=== PATIENT | female | born 1945 | race Caucasian/White ===

== ENCOUNTER 2016-05-31 16:22 | Inpatient (IN) | payer OTHER ==
--- NOTE | ~2016-05-31 | DS ---
Discharge Summary [facility] [address] [place]. [address] NAME: SANTOSH JEFFERSON : 43 STATUS : DIS IN PAT#: [id number] AGE: 70 ADM/REG DATE : 05/31/16 MR#: [id number] REPORT SERV DATE: 06/04/16 DICTATED BY: LESLEE CRUZ DATE: 06/03/16 REPORT STATUS : Draft TRANSCRIBED BY: MODTereso DATE: 06/03/16 ADMISSION DATE: 05/31/2016 DISCHARGE DATE: 06/03/2016 DISCHARGE DIAGNOSES: 1. Cholangitis. 2. 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 3. Diabetes mellitus type 2. 4. Hypokalemia. 5. Abdominal pain/tenderness resolved. CONSULTATION: GI, ORIANA Redman, 06/01/2016. COURSE IN THE HOSPITAL STAY: Please refer to history and physical dictated on 05/31/2016, as well as consultation note for complete details of admission and consult for complete details. This patient is a 70-year-old female, who presented with a history of unresectable cholangiocarcinoma due to peritoneal metastasis as well as pancreatitis. The patient was seen by Dr. Loredo on 05/29/2016 for stent removal. The patient presented to [facility] Emergency Room with complaints of increased abdominal pain, as well as cholangitis. The patient was evaluated by Pardeep Garner, for possible ERCP. The patient did undergo a biliary drain exchange on 06/02/2016, with drain remaining in place. The patient did tolerate procedure well. She is being discharged home with [facility] to resume dressing care per home health and education will be provided. The patient does deny pain at this time. Laboratory data has been monitored throughout her stay. The patient was noted with hypokalemia, but this was replaced per protocol. The patient will be discharged home to follow up with Oncology this week for followup imaging. She will continue antibiotics. DISCHARGE MEDICATIONS: 1. Aspirin 81 mg one p.o. daily. 2. Coreg 3.125 mg twice daily. 3. Neurontin 300 mg 3 times daily. 4. NovoLog FlexPen sliding scale. 5. Lisinopril 10 mg one p.o. every morning. 6. Remeron 50 mg one p.o. at bedtime. 7. Levaquin 750 mg one p.o. daily. 8. Flagyl 500 mg one p.o. every eight hours. 9. Vitamin B12 1000 mcg sublingual every day. 10.Folic acid 400 mg one p.o. daily. 11.Multivitamin p.o. daily. 12.Pravachol 20 mg one p.o. at bedtime. 13.Ferrous sulfate 325 mg one p.o. every morning. 14.Amaryl 1 mg p.o. daily. Discharge Summary [address] [address] NAME: SANTOSH JEFFERSON : 43 STATUS : DIS IN PAT#: [id number] AGE: 70 ADM/REG DATE : 05/31/16 MR#: [id number] REPORT SERV DATE: 06/04/16 DICTATED BY: LESLEE CRUZ DATE: 06/03/16 REPORT STATUS : Draft TRANSCRIBED BY: CÉSAR DATE: 06/03/16 15.Vitamin D3 1000 units daily. 16.Zofran 8 mg one p.o. every eight hours p.r.n. for nausea. 17.Compazine 10 mg one p.o. every 6 hours p.r.n. for nausea. 18.Tramadol 50 mg one p.o. every eight hours p.r.n. for pain. This discharge took less than 30 minutes. [facility]/CÉSAR Leslee Cruz NP / [id number] CC: Jerrod Vincent MD
--- NOTE | ~2016-05-31 | HP ---
History And Physical [address] [place]. [address] NAME: SANTOSH JEFFERSON : 43 STATUS : ADM Amber PAT#: [id number] AGE: 70 ADM/REG DATE : 05/31/16 MR#: [id number] REPORT SERV DATE: 05/31/16 DICTATED BY: BRAYAN BRUMFIELD DATE: 05/31/16 REPORT STATUS : Draft TRANSCRIBED BY: MODL DATE: 05/31/16 DATE OF ADMISSION: 05/31/2016 CHIEF COMPLAINT: Abdominal pain and discomfort with nausea, vomiting. HISTORY OF PRESENT ILLNESS: The patient is a 70-year-old very pleasant female with past medical history of recent diagnosis of cholangiocarcinoma with peritoneal metastases, likely acute cholangitis at this time, diabetes type 2 non-insulin dependent, hypertension, who since recent removal of stent and drain by Dr. Loredo, has had multiple episodes of nausea, vomiting, abdominal pain, and decreased p.o. intake. Symptoms have been in moderate severity, continuous and constant quality of cramping with no radiating symptoms, but associated with the site of drain on right quadrant. The patient still has postsurgical midline site pain also, but with no drainage or erythema. The patient has been slightly more weak with nausea, vomiting of clear liquids, no bilious contents. No fever, chills, or shortness of breath or headaches. She was evaluated at her oncologist in [place] and recommended to have further evaluation immediately in the emergency room after discussion with Dr. Loredo. ED has discussed the case with Dr. Loredo and tentative plan for ERCP after admission with empiric antibiotics. Symptoms are worsened with palpation, but able to tolerate food. No relieving symptoms. The patient has also been noticed to have more jaundice, per family members, a son, who is at bedside and reports that symptoms are still currently present with jaundice worsening into her eyes. The patient denies any itching type symptoms. REVIEW OF SYSTEMS: Additional 10-point review of systems negative for that noted in the HPI. PAST MEDICAL HISTORY: Hypertension; diabetes type 2; cholangiocarcinoma with peritoneal metastases, seen by Dr. Zepeda and Dr. Loredo. Additionally, pancreatitis, complicated by prior ERCP per records, common bile duct stricture. SURGICAL HISTORY: Exploratory laparotomy with wedge resection of liver lesion on T1 in 2017, hysterectomy, ERCP. FAMILY HISTORY: Diabetes and CVA. SOCIAL HISTORY: , accompanied by son who the patient lives with. No smoking, alcohol, or illicits and retired. Previously worked at [employer], but no chemical exposures. ALLERGIES: NO KNOWN DRUG ALLERGIES. HOME MEDICATIONS: Aspirin, Coreg, vitamin D3, B12, ferrous sulfate, folic acid, gabapentin, Amaryl, NovoLog, FlexPen 3 units before meals, Zestril, Remeron, multivitamin, Zofran, pravastatin, Compazine. PHYSICAL EXAMINATION: History And Physical [address] [address] NAME: SANTOSH JEFFERSON : 43 STATUS : ADM Amber PAT#: [id number] AGE: 70 ADM/REG DATE : 05/31/16 MR#: [id number] REPORT SERV DATE: 05/31/16 DICTATED BY: BRAYAN BRUMFIELD DATE: 05/31/16 REPORT STATUS : Draft TRANSCRIBED BY: CÉSAR DATE: 05/31/16 GENERAL: The patient's blood pressure is 131/60, temperature 99, pulse 77, respirations 16, O2 sats 98%. GENERAL: No acute distress. Calm, pleasant. EYES: Scleral icterus. EOMI. ENT: Nares patent. Tongue midline. Moist mucous membranes. RESPIRATORY: Respirations clear to auscultation. No wheezes or rales. Mild polyphonic breath sounds in lower lung cochran and anterior breath sounds, but otherwise, clear. No stridor. CV: Regular rate. No rubs or gallops. No pedal edema. GI: Mild right side quadrant tenderness and site tenderness at mid epigastric with palpation, but no rebound. No fluid wave. No gross hepatomegaly. : Deferred. MUSCULOSKELETAL: Moves all extremities x4. SKIN: Warm and dry. Mild jaundice, but no excoriation signs. LYMPHS: No cervical or supraclavicular lymphadenopathy. HEME: No bleeding or bruising. NEURO: Alert and oriented. No asterixis. Moves all extremities x4 with strength symmetrical in upper and lower extremities. Sensation is grossly intact. PSYCH: Appropriate mood and affect. Pleasant, calm, smiling, and joking manner. LABS: CMP: Sodium 136, potassium 3.2, chloride 97 with a bicarb of 29, BUN and creatinine 30 and 1.2, glucose 170. T protein 7.4, alkaline phosphatase 338, T bilirubin 4.9 increased from 0.5 on 05/04/2016, AST and ALT 113 and 244, lipase of 136, total protein 7.4. Calcium 9.7. CBC, grossly within normal limits. ASSESSMENT AND PLAN: 1. Cholangitis. 2. Hypokalemia. 3. Azotemia. 4. Diabetes type 2. 5. Elevated liver enzymes. 6. Hypertension. 7. Reported cholangiocarcinoma with peritoneal metastases. Plan for cholangitis. ERCP, tentatively planned by Dr. Loredo for further evaluation. Empiric antibiotics with Levaquin and Flagyl. The patient has not started taking home antibiotics that was called in today as the patient was told to come to emergency room. 8. Hypokalemia. IV replacement and monitoring. 9. Azotemia. IV fluids. The patient has had decreased p.o. intake secondary to nausea and vomiting. 10.Diabetes type 2. Sliding scale insulin. N.p.o. at midnight for possible ERCP. 11.Elevated liver enzymes. ERCP monitoring. Hold statin. 12.Hypertension. Monitor on ADIA inhibitor and beta bert. 13.Cholangiocarcinoma with peritoneal metastases, has been evaluated by Dr. Zepeda and currently under the care of Dr. Maverick Toro. All questions answered with the patient family at bedside. History And Physical [address] [address] NAME: SANTOSH JEFFERSON : 43 STATUS : ADM Amber PAT#: [id number] AGE: 70 ADM/REG DATE : 05/31/16 MR#: [id number] REPORT SERV DATE: 05/31/16 DICTATED BY: BRAYAN BRUMFIELD DATE: 05/31/16 REPORT STATUS : Draft TRANSCRIBED BY: MODL DATE: 05/31/16 DISPOSITION: Pending evaluation by GI team. DDN/ANGIEL Brayan Brumfield MD / [id number] CC: Guanako Gregory Jr, PAULY CONWAY
--- NOTE | ~2016-05-31 | CN ---
Consultation Report [facility] [address] [place]. [address] NAME: SANTOSH JEFFERSON : 43 STATUS : ADM Amber PAT#: [id number] AGE: 70 ADM/REG DATE : 05/31/16 MR#: [id number] REPORT SERV DATE: 06/01/16 DICTATED BY: REX DIOP DATE: 06/01/16 REPORT STATUS : Draft TRANSCRIBED BY: MODL DATE: 06/01/16 GI CONSULTATION DATE OF CONSULTATION: 06/01/2016 REASON FOR CONSULTATION: Evaluation and management of abdominal pain, concern for cholangitis in a patient with cholangiocarcinoma. HISTORY OF PRESENT ILLNESS: Ms Santosh Toure is a pleasant 70-year-old female patient, who has a history of unresectable cholangiocarcinoma due to peritoneal metastasis as well as pancreatitis, who was seen by Dr. Loredo on 05/29/2016 for stent removal. She has a history of a PTC tube as well as had a biliary stent. He removed only the biliary stent on the 05/29/2016 leaving behind the PTC tube; however, the patient's son states that after she got home on Sunday night, she seems to eat well, but later in the night she had abdominal discomfort, she ran a fever of 101.2. This continued throughout the next day and into Sunday. She was seen in [place] by her oncologist as she was getting ready to get markings for receiving radiation treatment secondary to her increasing jaundice and abdominal discomfort. Dr. Loredo was contacted. He advised them to bring her to [facility] for concerns of cholangitis, place her on antibiotics. I have discussed with Dr. Loredo as well as Dr. Purvis. We will take the patient today for ERCP with an uncovered metal stent placement, and evaluation of the PTC tube. I discussed this with the patient as well as the patient's son, who is at the bedside. I did discuss risks, benefits, alternatives, and complications with him to include, but not limited to risk of bleeding, perforation, infection, reaction to medications, as well as cardiac pulmonary side effects, and ERCP- induced pancreatitis. They are agreeable to proceed. PAST MEDICAL HISTORY: Positive for hypertension, type 2 diabetes, unresectable cholangiocarcinoma with peritoneal metastasis, and pancreatitis. PAST SURGICAL HISTORY: Exploratory laparotomy with wedge resection of the liver, hysterectomy, and ERCP. FAMILY HISTORY: Noncontributory from a GI standpoint. SOCIAL HISTORY: She is and presently she has been living with her son. Denies alcohol, tobacco, or illicits. ALLERGIES: NONE. HOME MEDICATIONS: Aspirin, Coreg, vitamin D3, B12, ferrous sulfate, folic acid, gabapentin, Amaryl, NovoLog, FlexPen 3 units before meals, Zestril, Remeron, multivitamin, Zofran, pravastatin, and Compazine. REVIEW OF SYSTEMS: Consultation Report [address] [place]. [address] NAME: SANTOSH JEFFERSON : 43 STATUS : ADM Amber PAT#: [id number] AGE: 70 ADM/REG DATE : 05/31/16 MR#: [id number] REPORT SERV DATE: 06/01/16 DICTATED BY: REX DIOP DATE: 06/01/16 REPORT STATUS : Draft TRANSCRIBED BY: CÉSAR DATE: 06/01/16 A 10-point review of systems was obtained, pertinent positives are addressed in the history of present illness. PHYSICAL EXAMINATION: VITAL SIGNS: Temperature 98.2, pulse 71, respiration 16, and blood pressure 166/77. NEUROLOGIC: Reveals an alert female, resting in bed with no focal deficits being noted. GENERAL: She is cooperative. She is in no obvious distress. She is awake, she is alert, and she is oriented x3. HEAD, EARS, EYES, NOSE, AND THROAT: She has notable mild scleral icterus. Pupils are equal, round, and reactive to light and accommodation. Normocephalic and atraumatic. SKIN: Warm, dry, and intact, but with mild jaundice noted. NECK: No JVD. No palpable nodes. LUNGS: Diminished throughout. Normal respiratory effort exhibited. Equal expansion. CARDIOVASCULAR: Regular rate and rhythm. ABDOMEN: Soft with mild tenderness to palpation to midline, at the old surgical site she has a right PTC tube covered with a drain. Hypoactive bowel sounds. EXTREMITIES: No edema. Normal distal pulses. PERTINENT LABORATORY DATA: Sodium 141, potassium 4.1, BUN is 24, and creatinine 0.73. White count 4.9, hemoglobin 11.3, and hematocrit is 34.3. Total bilirubin 3.4, it was 4.9 on admission. Alkaline phosphatase 338. ALT 244 and AST 113. ASSESSMENT: 1. Questionable cholangitis with jaundice. 2. Unresectable cholangiocarcinoma with peritoneal metastasis. 3. Type 2 diabetes. 4. Elevated LFTs. PLAN: 1. ERCP today to Dr. Purvis with metal stent placement. 2. We will hold her heparin. 3. Continue IV antibiotic coverage. We will follow. SRIRAM/CÉSAR ORIANA Redman / [id number] CC: Jerrod Vincent MD Consultation Report [address] [facility] [address] NAME: SANTOSH JEFFERSON : 43 STATUS : ADM Amber PAT#: [id number] AGE: 70 ADM/REG DATE : 05/31/16 MR#: [id number] REPORT SERV DATE: 06/01/16 DICTATED BY: REX DIOP DATE: 06/01/16 REPORT STATUS : Draft TRANSCRIBED BY: CÉSAR DATE: 06/01/16 PAULY LAWLER
[2016-05-31 14:19] LABS: BASOPHILS 0.3 %; BASOPHILS ABSOLUTE 0.02 10/3/uL (0.0-0.16); EOSINOPHILS 2.6 %; IMMATURE GRANULOCYTES 0.3 %; IMMATURE GRANULOCYTES ABSOLUTE 0.02 10/3/uL (0.0-0.11); LYMPHOCYTES 18.5 %; LYMPHOCYTES ABSOLUTE 1.44 10/3/uL (0.67-4.30); MEAN CORPUS HGB CONC 34.2 g/dL (32.0-36.0); MEAN CORPUSCULAR HEMOGLOB 30.7 pg (26.0-34.0); MEAN CORPUSCULAR VOLUME 89.6 fL (80-100); MEAN PLATELET VOLUME 10.2 fL (9.2-13.0); MONOCYTES 8.5 %; MONOCYTES ABSOLUTE 0.66 10/3/uL (0.21-1.20); NEUTROPHILS 69.8 %; NEUTROPHILS ABSOLUTE 5.43 10/3/uL (2.02-8.40); RBC DISTRIBUTION WIDTH 12.9 % (12.0-16.0); RED CELL COUNT 4.24 10/6/uL (4.0-5.6); WHITE BLOOD CELLS 7.8 10/3/uL (4.5-10.5)
[2016-05-31 14:20] LABS: MANUAL DIFF NO %; PLATELET COUNT 212 10/3/uL (150-400)
[2016-05-31 14:33] LABS: ALBUMIN 3.1 G/DL (3.5-5.0); CHLORIDE, SERUM 97 MMOL/L (96-112); CO2 (CARBON DIOXIDE) 29 MMOL/L (24-34); CREATININE 1.02 MG/DL (0.55-1.02); GFR AFRICAN AMERICAN 64 ML/MIN (>=60); GFR NON AFRICAN AMERICAN 55 ML/MIN (>=60); GLUCOSE, SERUM 170 MG/DL (60-99); SGOT(AST) 113 U/L (5-40); SGPT(ALT) 244 U/L (5-65); SODIUM, SERUM 136 MMOL/L (135-148)
[2016-05-31 14:37] LABS: A/G RATIO 0.7 (0.7-1.9); ALKALINE PHOSPHATASE 338 U/L (45-117); BUN (BLOOD UREA NITROGEN) 30 MG/DL (6-23); CALCIUM, SERUM 9.7 MG/DL (8.5-10.4); GLOBULIN 4.3 G/DL (2.5-4.1); POTASSIUM, SERUM 3.2 MMOL/L (3.5-5.3); TOTAL BILIRUBIN 4.9 MG/DL (0-1.2); TOTAL PROTEIN 7.4 G/DL (6.0-8.5)
[~2016-05-31 16:22] MED LIST: AMARYL1 MG PO; ASAB PO; COREG3 PO; COREG6 PO; FERROUS SULF325 M1 PO; FOLIC ACID400 MC1 PO; GLUCPH PO; IRON TAB PO; LEVEMFLXPN SC; MULTIPLE VIT PO; NEUR300 PO; NOVOPEN SC; PCET PO; PRAVAC PO; REM15 PO; VITAMIN B-121000 MC1 SL; VITAMIN D31000 UNIT PO; ZESTRIL10 MG PO; ZOFRANODT8 PO
[2016-05-31] MEDS ORDERED: COMP10B PO (16:34)
[2016-06-01 06:05] LABS: BASOPHILS 0.6 %; BASOPHILS ABSOLUTE 0.03 10/3/uL (0.0-0.16); EOSINOPHILS 8.8 %; EOSINOPHILS ABSOLUTE 0.43 10/3/uL (0.0-0.53); HEMATOCRIT 34.3 % (36.0-48.0); HEMOGLOBIN 11.3 g/dL (12.0-16.0); LYMPHOCYTES 21.3 %; LYMPHOCYTES ABSOLUTE 1.04 10/3/uL (0.67-4.30); MEAN CORPUS HGB CONC 32.9 g/dL (32.0-36.0); MEAN CORPUSCULAR HEMOGLOB 29.4 pg (26.0-34.0); MEAN CORPUSCULAR VOLUME 89.1 fL (80-100); MEAN PLATELET VOLUME 10.4 fL (9.2-13.0); MONOCYTES 10.5 %; MONOCYTES ABSOLUTE 0.51 10/3/uL (0.21-1.20); NEUTROPHILS 58.8 %; NEUTROPHILS ABSOLUTE 2.87 10/3/uL (2.02-8.40); PLATELET COUNT 193 10/3/uL (150-400); RBC DISTRIBUTION WIDTH 13.2 % (12.0-16.0); RED CELL COUNT 3.85 10/6/uL (4.0-5.6); WHITE BLOOD CELLS 4.9 10/3/uL (4.5-10.5)
[2016-06-01 06:15] LABS: MANUAL DIFF NO %
[2016-06-01 06:16] LABS: CHLORIDE, SERUM 105 MMOL/L (96-112); CO2 (CARBON DIOXIDE) 27 MMOL/L (24-34); CREATININE 0.73 MG/DL (0.55-1.02); GFR AFRICAN AMERICAN 96 ML/MIN (>=60); GFR NON AFRICAN AMERICAN 83 ML/MIN (>=60); SGOT(AST) 74 U/L (5-40); SGPT(ALT) 165 U/L (5-65); SODIUM, SERUM 141 MMOL/L (135-148); TOTAL PROTEIN 6.2 G/DL (6.0-8.5)
[2016-06-01 06:17] LABS: A/G RATIO 0.6 (0.7-1.9); ALBUMIN 2.4 G/DL (3.5-5.0); ALKALINE PHOSPHATASE 291 U/L (45-117); BUN (BLOOD UREA NITROGEN) 24 MG/DL (6-23); CALCIUM, SERUM 8.7 MG/DL (8.5-10.4); GLOBULIN 3.8 G/DL (2.5-4.1); GLUCOSE, SERUM 115 MG/DL (60-99); POTASSIUM, SERUM 4.6 MMOL/L (3.5-5.3); TOTAL BILIRUBIN 3.4 MG/DL (0-1.2)
[2016-06-02 05:05] LABS: BASOPHILS 0.4 %; BASOPHILS ABSOLUTE 0.02 10/3/uL (0.0-0.16); EOSINOPHILS 3.3 %; EOSINOPHILS ABSOLUTE 0.16 10/3/uL (0.0-0.53); HEMATOCRIT 35.9 % (36.0-48.0); HEMOGLOBIN 12.2 g/dL (12.0-16.0); LYMPHOCYTES 25.8 %; LYMPHOCYTES ABSOLUTE 1.27 10/3/uL (0.67-4.30); MEAN CORPUSCULAR VOLUME 91.3 fL (80-100); MEAN PLATELET VOLUME 10.2 fL (9.2-13.0); MONOCYTES 8.1 %; NEUTROPHILS 62.4 %; NEUTROPHILS ABSOLUTE 3.07 10/3/uL (2.02-8.40); PLATELET COUNT 195 10/3/uL (150-400); RED CELL COUNT 3.93 10/6/uL (4.0-5.6); WHITE BLOOD CELLS 4.9 10/3/uL (4.5-10.5)
[2016-06-02 05:06] LABS: MANUAL DIFF NO %
[2016-06-02 05:12] LABS: ALBUMIN 2.6 G/DL (3.5-5.0); CALCIUM, SERUM 8.8 MG/DL (8.5-10.4); CHLORIDE, SERUM 106 MMOL/L (96-112); CO2 (CARBON DIOXIDE) 24 MMOL/L (24-34); CREATININE 0.67 MG/DL (0.55-1.02); GFR AFRICAN AMERICAN 102 ML/MIN (>=60); GFR NON AFRICAN AMERICAN 88 ML/MIN (>=60); GLUCOSE, SERUM 101 MG/DL (60-99); POTASSIUM, SERUM 3.5 MMOL/L (3.5-5.3); SGOT(AST) 44 U/L (5-40); SGPT(ALT) 128 U/L (5-65); SODIUM, SERUM 142 MMOL/L (135-148); TOTAL PROTEIN 6.6 G/DL (6.0-8.5)
[2016-06-02 05:13] LABS: ALKALINE PHOSPHATASE 330 U/L (45-117); BUN (BLOOD UREA NITROGEN) 14 MG/DL (6-23); DIRECT BILIRUBIN 1.1 MG/DL (0.0-0.4); INDIRECT BILIRUBIN(NOT ORDER) 0.6 MG/DL (0.1-0.9); TOTAL BILIRUBIN 1.7 MG/DL (0-1.2)
[2016-06-03 05:08] LABS: BASOPHILS 0.4 %; BASOPHILS ABSOLUTE 0.03 10/3/uL (0.0-0.16); EOSINOPHILS 1.1 %; EOSINOPHILS ABSOLUTE 0.09 10/3/uL (0.0-0.53); HEMATOCRIT 36.8 % (36.0-48.0); HEMOGLOBIN 12.4 g/dL (12.0-16.0); IMMATURE GRANULOCYTES 0.1 %; IMMATURE GRANULOCYTES ABSOLUTE 0.01 10/3/uL (0.0-0.11); LYMPHOCYTES 13.6 %; LYMPHOCYTES ABSOLUTE 1.09 10/3/uL (0.67-4.30); MANUAL DIFF NO %; MEAN CORPUS HGB CONC 33.7 g/dL (32.0-36.0); MEAN CORPUSCULAR HEMOGLOB 30.6 pg (26.0-34.0); MEAN CORPUSCULAR VOLUME 90.9 fL (80-100); MEAN PLATELET VOLUME 9.9 fL (9.2-13.0); MONOCYTES 4.5 %; MONOCYTES ABSOLUTE 0.36 10/3/uL (0.21-1.20); NEUTROPHILS 80.3 %; NEUTROPHILS ABSOLUTE 6.45 10/3/uL (2.02-8.40); PLATELET COUNT 226 10/3/uL (150-400); RBC DISTRIBUTION WIDTH 12.9 % (12.0-16.0); RED CELL COUNT 4.05 10/6/uL (4.0-5.6)
[2016-06-03 05:18] LABS: A/G RATIO 0.7 (0.7-1.9); ALBUMIN 2.8 G/DL (3.5-5.0); CALCIUM, SERUM 8.7 MG/DL (8.5-10.4); CHLORIDE, SERUM 103 MMOL/L (96-112); CO2 (CARBON DIOXIDE) 25 MMOL/L (24-34); GFR AFRICAN AMERICAN 101 ML/MIN (>=60); GFR NON AFRICAN AMERICAN 87 ML/MIN (>=60); POTASSIUM, SERUM 3.3 MMOL/L (3.5-5.3); SGOT(AST) 25 U/L (5-40); SGPT(ALT) 96 U/L (5-65); SODIUM, SERUM 140 MMOL/L (135-148); TOTAL PROTEIN 6.8 G/DL (6.0-8.5)
[2016-06-03 05:21] LABS: ALKALINE PHOSPHATASE 297 U/L (45-117); BUN (BLOOD UREA NITROGEN) 22 MG/DL (6-23); DIRECT BILIRUBIN 0.7 MG/DL (0.0-0.4); GLUCOSE, SERUM 189 MG/DL (60-99); INDIRECT BILIRUBIN(NOT ORDER) 0.5 MG/DL (0.1-0.9); TOTAL BILIRUBIN 1.2 MG/DL (0-1.2)
[2016-06-03] MEDS ORDERED: LEVAQUIN750 MG PO (15:29)
[2016-06-03] MEDS ORDERED: FLAG500TAB PO (15:30)
[2016-06-03] MEDS ORDERED: ULTRAM50 PO (15:31)
== END 2016-06-03 17:03 | disposition home or self-care (01) | DRG 940 ==
LOC: ER 16:22 → CDU1 17:42
PROVIDERS: Emergency Medicine; Internal Medicine; Nurse Practitioner Family; Student in an Organized Health Care Education/Training Program
PROC: 0DP Gastrointestinal System, Removal (ICD-10-PCS; principal; 2016-05-31)
PROC: 0FPB30Z Removal of Drainage Device from Hepatobiliary Duct, Percutaneous Approach (ICD-10-PCS; 2016-06-02)
PROC: 0FH Hepatobiliary System and Pancreas, Insertion (ICD-10-PCS; 2016-06-02)
DX: T85.858A Stenosis due to other internal prosthetic devices, implants and grafts, initial encounter (principal); K83.0 Cholangitis; C22.1 Intrahepatic bile duct carcinoma; C78.6 Secondary malignant neoplasm of retroperitoneum and peritoneum; E11.9 Type 2 diabetes mellitus without complications; E87.6 Hypokalemia; Z90.710 Acquired absence of both cervix and uterus; I10 Essential (primary) hypertension; Z83.3 Family history of diabetes mellitus; Z82.3 Family history of stroke; Z79.82 Long term (current) use of aspirin; Y83.8 Other surgical procedures as the cause of abnormal reaction of the patient, or of later complication, without mention of misadventure at the time of the procedure; Z53.9 Procedure and treatment not carried out, unspecified reason
CPT/HCPCS: 47536; 80048; 80053; 80076; 82248; 82962; 83690; 83735; 84132; 84145; 85025; 87040; 93005; 99152; 99153; 99285; A9270-GY; C1729; C1769; J0360; J1170; J1956; J2250; J2405; J2550; J3010; Q9967